=== PATIENT | male | born 1945 | race Caucasian/White ===

== ENCOUNTER → 2017-03-22 | Outpatient (CLI) | payer MEDICARE, BC ==
[~2017-03-22] MED LIST: ALFU10TA PO; ALLO100T30 PO; ASPI-496 PO; ATOR20TA9 PO; ATOR40TA78 PO; BENA1TAB11 PO; BENA20TA2 PO; BIOF1TAB6 PO; GLYB2.5T2 PO; IBUP200C PO; LEVO150T5 PO; METF850T2 PO; METO-93 PO; METO50TA82 PO; MULT-717 PO; OMEG1CAP2 PO; POTA20TA6 PO; RIVA20TA PO; SITA100T PO; ZOLP10TA PO
== END | disposition home or self-care (01) ==
LOC: CFH 10:27
PROVIDERS: ATTEND Internal Medicine Cardiovascular Disease
DX: I08.3 Combined rheumatic disorders of mitral, aortic and tricuspid valves (principal); I37.1 Nonrheumatic pulmonary valve insufficiency; I51.7 Cardiomegaly; E78.5 Hyperlipidemia, unspecified; E11.9 Type 2 diabetes mellitus without complications; Z95.0 Presence of cardiac pacemaker
CPT/HCPCS: 93306

== ENCOUNTER → 2018-04-12 | Outpatient (CLI) | payer MEDICARE, BC ==
[~2018-04-12] MED LIST changes: -IBUP200C PO; +IBUP200C5 PO
== END | disposition home or self-care (01) ==
LOC: CFH 12:15
PROVIDERS: ATTEND Internal Medicine Cardiovascular Disease
DX: I08.3 Combined rheumatic disorders of mitral, aortic and tricuspid valves (principal); I10 Essential (primary) hypertension; E78.5 Hyperlipidemia, unspecified; Z85.46 Personal history of malignant neoplasm of prostate; Z95.0 Presence of cardiac pacemaker
CPT/HCPCS: 93306

== ENCOUNTER 2019-05-05 13:38 | Outpatient (CLI) | payer MEDICARE, BC ==
[~2019-05-05 13:38] MED LIST changes: +ATOR20TA37 PO; -ATOR20TA9 PO; -BENA20TA2 PO; +BENA20TA54 PO; +IBUP-1623 PO; -IBUP200C5 PO; +METF850T10 PO; -METF850T2 PO
== END 2019-05-05 23:59 | disposition home or self-care (01) ==
LOC: CFH 13:38
PROVIDERS: ATTEND Internal Medicine Cardiovascular Disease
DX: I08.0 Rheumatic disorders of both mitral and aortic valves (principal); I10 Essential (primary) hypertension; E78.5 Hyperlipidemia, unspecified; Z87.891 Personal history of nicotine dependence
CPT/HCPCS: 93306

== ENCOUNTER 2021-07-01 14:35 | Outpatient (CLI) | payer MEDICARE, BC ==
[~2021-07-01 14:35] MED LIST changes: +POTA-143 PO; -POTA20TA6 PO
== END 2021-07-01 23:59 | disposition home or self-care (01) ==
LOC: CVU 14:35
PROVIDERS: ATTEND Internal Medicine Cardiovascular Disease
DX: I65.21 Occlusion and stenosis of right carotid artery (principal); R55 Syncope and collapse
CPT/HCPCS: 93880